=== PATIENT | female | born 1960 | race Caucasian/White ===

== ENCOUNTER 2023-01-10 09:53 | Outpatient (RCR) | payer MEDICARE, OTHER | END 2023-01-11 | LOC: OT 09:53 | PROVIDERS: ATTEND Specialist | DX: S42.221D 2-part displaced fracture of surgical neck of right humerus, subsequent encounter for fracture with routine healing (principal) ==

== ENCOUNTER 2023-02-07 09:30 | Outpatient (RCR) | payer OTHER | END 2023-02-10 | LOC: PT 09:30 | PROVIDERS: ATTEND Specialist | DX: S42.221D 2-part displaced fracture of surgical neck of right humerus, subsequent encounter for fracture with routine healing (principal) ==

== ENCOUNTER 2023-03-04 10:44 | Outpatient (RCR) | payer OTHER | END 2023-03-13 | LOC: OT 10:44 | PROVIDERS: ATTEND Specialist | DX: S42.221D 2-part displaced fracture of surgical neck of right humerus, subsequent encounter for fracture with routine healing (principal) ==

== ENCOUNTER 2023-04-02 13:54 | Outpatient (RCR) | payer OTHER | END 2023-04-12 | LOC: OT 13:54 | PROVIDERS: ATTEND Specialist | DX: S42.221D 2-part displaced fracture of surgical neck of right humerus, subsequent encounter for fracture with routine healing (principal) ==